=== PATIENT | male | born 1970 | race Caucasian/White ===

== ENCOUNTER 2019-10-15 15:59 | Inpatient (IN) | payer OTHER ==
[~2019-10-15] VITALS: Ht 180.3 cm; Wt 91.8 kg
[~2019-10-15 15:59] MED LIST: CEPH500 PO; CLIN300 PO; CRUTCH3 USE; HYDACE10B PO; HYDACE5 PO; HYDACE5325 PO; IBUP800 PO; LORA1 PO; LORA10ER PO; MECL25 PO; MOMENI; OXYACE5T PO; PRED20 PO; RXHYDACE PO; RXLORA1 PO; RXONDA4ODT MM
[2019-10-15 18:09] LABS: BASOPHILS ABSOLUTE AUTO 0.06 K/mm3 (0.00-0.23); BASOPHILS PERCENT AUTO 1 % (0-2); EOSINOPHILS ABSOLUTE AUTO 0.09 K/mm3 (0.00-0.68); EOSINOPHILS PERCENT AUTO 1 % (0-6); Hematocrit 43.1 % (37.0-53.0); Hemoglobin 14.4 g/dL (13.5-17.5); IMMATURE GRAN ABSOLUTE AUTO 0.04 K/mm3 (0.00-0.10); IMMATURE GRAN PERCENT AUTO 0 % (0-1); LYMPHOCYTES ABSOLUTE AUTO 1.75 K/mm3 (0.84-5.20); LYMPHOCYTES PERCENT AUTO 17 % (21-46); MONOCYTES ABSOLUTE AUTO 0.84 K/mm3 (0.16-1.47); MONOCYTES PERCENT AUTO 8 % (4-13); Mean Corpuscular HGB 28.5 pg (26.0-34.0); Mean Corpuscular HGB Conc 33.4 g/dL (31.5-36.5); Mean Corpuscular Volume 85 fL (80-100); Mean Platelet Volume 10.4 fL (9.1-12.4); NEUTROPHILS ABSOLUTE AUTO 7.55 K/mm3 (1.96-9.15); NEUTROPHILS PERCENT AUTO 73 % (41-73); Platelet Count 300 K/mm3 (150-400); RDW Coefficient Variation 12.4 % (11.7-14.2); RDW Standard Deviation 37.7 fL (35.1-46.3); Red Blood Cell Count 5.06 M/mm3 (4.30-5.90); White Blood Cell Count 10.33 K/mm3 (4.00-11.30)
[2019-10-15 18:29] LABS: Alanine Aminotransfer (ALT/SGP 37 U/L (12-78); Albumin, Blood 3.8 g/dL (3.4-5.0); Albumin/Globulin Ratio 0.7 (0.8-1.8); Alk Phos 101 U/L (50-136); Anion Gap 5 mmol/L (6-16); Aspartate Aminotrans (AST/SGOT 17 U/L (12-37); Bilirubin, Total 0.8 mg/dL (0.1-1.0); Blood Urea Nitrogen 8 mg/dL (8-24); CO2, Blood 29 mmol/L (21-32); Calcium, Blood 9.9 mg/dL (8.5-10.1); Chloride, Blood 98 mmol/L (98-108); Globulin, Blood 5.1 g/dL (2.2-4.0); Glomerular Filtration Rate >60 (60-); Glucose, Blood 96 mg/dL (70-99); Potassium, Blood 3.6 mmol/L (3.5-5.5); Sodium, Blood 132 mmol/L (136-145); Total Protein, Blood 8.9 g/dL (6.4-8.2)
[2019-10-15] MEDS ORDERED: TAMS.4ER PO (19:13)
[2019-10-15] MEDS ORDERED: DOXY100 PO (19:13)
[2019-10-15] MEDS ORDERED: Pyridium200 MG (19:14)
[2019-10-15] MEDS ORDERED: Norco 5-325 Ta1 EACH PO (19:14)
[2019-10-15 20:42] LABS: Source, Urine Clean Catch
[2019-10-15 20:44] LABS: Appearance, Urine Clear (Clear); Blood, Urine 1+ (Neg); Glucose Qualitative, Urine Neg (Neg); Ketones, Urine Neg (Neg); Leukocyte Esterase, Urine 3+ (Neg); Nitrite, Urine Pos (Neg); Protein, Urine 1+ (Neg); Specific Gravity, Urine 1.005 (1.003-1.022); Urobilinogen, Urine 2+ (Normal); pH, Urine 6.5 (5.0-8.0)
[2019-10-15 20:49] LABS: Bilirubin, Urine 2+ (Neg); Color, Urine Orange (P-Yellow)
[2019-10-15 20:50] LABS: Red Blood Cells, Urine 0-2 /hpf (0-2); Squamous Epithelial Cells Rare /hpf (Few); White Blood Cells, Urine 50-100 /hpf (0-5)
[2019-10-15 20:51] LABS: Bacteria Mod /hpf
[2019-10-15] MEDS ORDERED: HYDACE10B PO (23:03)
--- NOTE | 2019-10-16 02:55 | NUR ---
0255 BLADDER SCAN 379 ML
--- NOTE | 2019-10-16 04:22 | NUR ---
SUMMARY PT ARRIVED TO FLOOR IN DISCOMFORT. PT STATES THAT THE [place] HAS NOT PROVIDED RELIEF VERY WELL. PT REPORTS IV PAIN MED WORKS WELL BUT DOES NOT LAST. PT CONTINUES TO HAVE DISCOMFORT TRYING TO VOID. PT REPORTS THE PYRIDIUM HAS HELPED WELL. PT REPORTED HAVING A LARGE BM THIS SHIFT WELL. CALL LIGHT IN REACH
--- NOTE | 2019-10-16 17:06 | NUR ---
SHIFT SUMMARY- PT IS A/O, PLESANT AND COOPERATIVE. ENCOURAGING FLUID INTAKE. HE IS HAVING SOME PAIN WITH URINATION, AND DOES NOT FEEL LIKE HE IS VOIDING COMPLETELY. HE IS EATING AND DRINKING WELL. MADE SOME CHANGES TO HIS PAIN MEDICATION, WHICH HE REPORTS IS WORKING BETTER. HE ATTEMPTED TO REST FOR MUCH OF THIS AFTERNOON
--- NOTE | 2019-10-17 05:57 | NUR ---
SHIFT SUMMARY ASSUMED CARE OF PT AT 1900. PT IS A/OX4, DENIES N.T IN EXTREMITES. LUNG SOUNDS CLEAR, HEART SOUNDS REGULAR, PT DENIES SOB/CP AT THIS TIME. PT IS HAVING DIFFICULTY URINATING BUT HE STATES THAT IT HAS BEEN GETTING BETTER SINCE HE STARTED ABX. PT IS INDEPENDENT IN ROOM. PT C/O PAIN IN HIS LOWER ABD WHERE IS BLADDER IS, MEDICATED PER EMAR. NO ACUTE EVENTS DURING THE NIGHT. PT SLEPT T/O THE NIGHT. CALL LIGHT IN REACH, BED IN LOWEST POSTION, WILL CONTINUE TO MONITOR UNTIL DAYSHIFT NURSE ARRIVES.
--- NOTE | 2019-10-17 18:15 | NUR ---
SHIFT SUMMARY- PT IS A/O, PLESANT AND COOPERATIVE. HE IS HAVING AN EASIER TIME URINATING TODAY. HE RECIEVED BOWEL CARE AND HAD A BM THIS SHIFT. HE IS EATING AND DRINKING WELL. HE IS INDEPENDENT IN THE ROOM. HE TOOK A SHOWER THIS AFTERNOON.
--- NOTE | 2019-10-18 05:41 | NUR ---
SHIFT SUMMARY PT HAD DIFFICULT NIGHT. AT START OF SHIFT PT HAD A BOWEL MOVEMENT AFTER DRINKING PRUNE JUICE. PT FELT GOOD IMMEDIATELY AFTER BM, FELT IF HE WAS ABLE TO VOID WELL. AT APPROX 2330 PT BEGAN HAVING DIFFICULTY AGAIN GETTING HIS STREAM TO START AND EXPERIENCED BLADDER SPASMS. PT VERY UNCOMFORTABLE AT THIS TIME. MEDICATED W/ ROXICODONE AND NEW ORDER FOR FLEXERIL. PT APPEARED TO REST WELL FOLLOWING. PT REFUSED BLADDER SCAN BUT DID EVENTUALLY VOID A LARGE AMOUNT OF ORANGE URINE. PT HOPEFUL TO DISCHARGE TODAY HE HAS A TRIP WITH HIS SON SOON. VITAL SIGNS STABLE. WILL CONTINUE TO MONITOR.
--- NOTE | 2019-10-18 17:45 | NUR ---
PT AOX4 AND COOPERATIVE OF CARE. PT INDEPENDENT IN ROOM AND CALLS APPROPRIATELY. PT TREATED FOR ABDOMINAL PAIN PER EMAR. PT STATED AT THE START OF SHIFT HE WAS HAVING TROUBLE URINATING, BUT WAS ABLE TO VOID WITH SOME EFFORT. PT BECAME MUCH MORE ANXIOUS WHEN HE FOUND OUT FLEXRIL HAD BEEN DC'D. THIS AFTER SCHOOL CAREGIVER TALKED WITH DR NUNO AND LET PT KNOW WHY CHANGES HAD BEEN MADE AND DR NUNO STOPPED AND TALKED WITH PT WELL. PT STILL IS ANXIOUS AND KEEPS HAVING MORE AND MORE QUESTIONS TO ASK. WILL CONTINUE TO MONITOR.
[2019-10-18 19:08] LABS: Hematocrit 39.3 % (37.0-53.0); Hemoglobin 12.7 g/dL (13.5-17.5); Mean Corpuscular HGB 27.7 pg (26.0-34.0); Mean Corpuscular HGB Conc 32.3 g/dL (31.5-36.5); Mean Corpuscular Volume 86 fL (80-100); Mean Platelet Volume 10.1 fL (9.1-12.4); Platelet Count 273 K/mm3 (150-400); RDW Coefficient Variation 12.4 % (11.7-14.2); RDW Standard Deviation 38.8 fL (35.1-46.3); Red Blood Cell Count 4.59 M/mm3 (4.30-5.90); White Blood Cell Count 7.01 K/mm3 (4.00-11.30)
[2019-10-18 19:32] LABS: Anion Gap 5 mmol/L (6-16); Blood Urea Nitrogen 12 mg/dL (8-24); CO2, Blood 28 mmol/L (21-32); Calcium, Blood 9.2 mg/dL (8.5-10.1); Chloride, Blood 103 mmol/L (98-108); Creatinine, Blood 1.09 mg/dL (0.60-1.20); Glomerular Filtration Rate >60 (60-); Glucose, Blood 107 mg/dL (70-99); Potassium, Blood 4.1 mmol/L (3.5-5.5); Sodium, Blood 136 mmol/L (136-145)
--- NOTE | 2019-10-19 07:22 | NUR ---
SHIFT SUMMARY A/O, ABLE TO MAKE NEEDS KNOWN. COOPERATIVE WITH CARE. CALLS AND ANSWERS QUESTIONS APPROPRIATELY. C/O PAIN/DISCOMFORT TO FLANK/GROIN/BACK; MEDICATED PER EMAR. STATED THIS AM THAT UNABLE TO VOID X SEVERAL HOURS. OFFERED PO LIBRIUM WHICH WAS SUBSTITUTED YESTERDAY 11/17/19 ACCORDING TO PATIENT. STATES DOES NOT WORK "FLEXERIL WORKS". STATES SOMEONE NEEDS TO TALK TO SOMEONE, BECAUSE NO ONE IS LISTENING TO ME. TEARFUL AND AGITATED. BLADDER SCAN DONE YEILDING 530 ML. ONCMONIKA RN NOTIFIED OF SITUATION IN WHICH SHE HAS LEFT MESSAGE WITH ATTENDING PHYSICIAN. VSS/AFEBRILE. CONTINUED TO MONITOR OVERNIGHT. BED IN LOWEST POSITION. CALL LIGHT AND BELONGINGS WITHIN REACH. REPORT GIVEN TO LUIS SANTIAGO.
[2019-10-19] MEDS ORDERED: TAMS.4ER PO (15:41)
[2019-10-19] MEDS ORDERED: HIGH POTENCY P1 EAC1 PO (15:41)
[2019-10-19] MEDS ORDERED: CIPR500 PO (15:43)
[2019-10-19] MEDS ORDERED: SENN187 PO (15:47)
--- NOTE | 2019-10-19 17:07 | NUR ---
PT DISCHARGED AT 1704 WITH AID TO TRANSPORT VIA WHEELCHAIR. ALL PERSONAL BELONGINGS ARE WITH PT. PT DISCHARGED WITH HUYNH BAG IN PLACE PT IS TO FOLLOW UP WITH HIS PCP AND UROLOGIST PER DR OCAMPO. PT STARTED SHIFT TODAY VERY ANXIOUS AND IN PAIN DUE TO NOT BEING ABLE TO VOID. DR OCAMPO WAS NOTIFIED AND INSTUCTED HUYNH TO BE PLACED. PT TOLERATED HUYNH WELL AND IT HUYNH WORKED WELL. PT BECAME MUCH HAPPIER AND COMFORTABLE. PT HAS BEEN INSTRUCTED ON HOW TO ATTATCH A LEG BAG AND WAS SENT WITH ONE. APPOINTMENT HAS BEEN SCHEDULED WITH A UROLOGIST TO FOLLOW UP WITH. ALL MEDICATIONS FAXED TO PHARMACY. PT VERBALIZED UNDERSTANDING FOR NEED TO SEE PCP AND UROLOGIST. NO DISTRESS NOTED ON DISCHARGE. PT'S PAIN EARLIER IN THE DAY TREATED PER EMAR.
== END 2019-10-19 17:03 | disposition home or self-care (01) | DRG 728 ==
LOC: ER 15:59 → MEDS 21:56
PROVIDERS: Emergency Medicine; Internal Medicine; Physician Assistant; ADMIT Family Medicine
DX: N41.2 Abscess of prostate (principal); R65.10 Systemic inflammatory response syndrome (SIRS) of non-infectious origin without acute organ dysfunction; E87.1 Hypo-osmolality and hyponatremia; K59.00 Constipation, unspecified; B96.20 Unspecified Escherichia coli [E. coli] as the cause of diseases classified elsewhere; N32.0 Bladder-neck obstruction; R33.9 Retention of urine, unspecified; N41.9 Inflammatory disease of prostate, unspecified
CPT/HCPCS: 36415; 74177; 80048; 80053; 81001; 83690; 85025; 85027; 87086; 96365-59; 99285-25; A9270; A9270-GY; J0744; J3010; J7030; J7050; Q9967

== ENCOUNTER → 2021-09-07 | Outpatient (CLI) | payer OTHER ==
[~2021-09-07] MED LIST changes: +CIPR500 PO; +DOXY100 PO; +HIGH POTENCY P1 EAC1 PO; +Norco 5-325 Ta1 EACH PO; +Pyridium200 MG; +SENN187 PO; +TAMS.4ER PO
[2021-09-07 17:58] LABS: BASOPHILS ABSOLUTE AUTO 0.06 K/mm3 (0.00-0.23); BASOPHILS PERCENT AUTO 1 % (0-2); EOSINOPHILS ABSOLUTE AUTO 0.24 K/mm3 (0.00-0.68); EOSINOPHILS PERCENT AUTO 4 % (0-6); IMMATURE GRAN ABSOLUTE AUTO 0.01 K/mm3 (0.00-0.10); IMMATURE GRAN PERCENT AUTO 0 % (0-1); LYMPHOCYTES ABSOLUTE AUTO 1.69 K/mm3 (0.84-5.20); LYMPHOCYTES PERCENT AUTO 31 % (21-46); MONOCYTES ABSOLUTE AUTO 0.46 K/mm3 (0.16-1.47); MONOCYTES PERCENT AUTO 8 % (4-13); Mean Corpuscular HGB 28.3 pg (26.0-34.0); Mean Corpuscular HGB Conc 34.1 g/dL (31.5-36.5); Mean Corpuscular Volume 83 fL (80-100); Mean Platelet Volume 10.5 fL (9.1-12.4); NEUTROPHILS PERCENT AUTO 55 % (41-73); Platelet Count 224 K/mm3 (150-400); RDW Coefficient Variation 12.9 % (11.7-14.2); RDW Standard Deviation 38.6 fL (35.1-46.3); White Blood Cell Count 5.46 K/mm3 (4.00-11.30)
[2021-09-07 18:11] LABS: C-REACTIVE PROTEIN, EXT RANGE <0.290 mg/dL (0.000-0.300); Magnesium, Blood 2.5 mg/dL (1.6-2.4); Uric Acid, Blood 5.7 mg/dL (3.5-7.2)
[2021-09-07 18:13] LABS: Alanine Aminotransfer (ALT/SGP 38 U/L (12-78); Albumin, Blood 3.9 g/dL (3.4-5.0); Albumin/Globulin Ratio 1.2 (0.8-1.8); Alk Phos 56 U/L (50-136); Anion Gap 4 mmol/L (6-16); Aspartate Aminotrans (AST/SGOT 16 U/L (12-37); Bilirubin, Total 0.4 mg/dL (0.1-1.0); Blood Urea Nitrogen 12 mg/dL (8-24); Bun/Creatinine Ratio 12.8 (12.0-20.0); CHOL/HDL RATIO 5.5; CO2, Blood 28 mmol/L (21-32); Calcium, Blood 8.9 mg/dL (8.5-10.1); Chloride, Blood 106 mmol/L (98-108); Cholesterol 202 mg/dL (50-200); Creatinine, Blood 0.93 mg/dL (0.60-1.20); Globulin, Blood 3.3 g/dL (2.2-4.0); Glomerular Filtration Rate >60 (60-); Glucose, Blood 106 mg/dL (70-99); HDL Cholesterol 37 mg/dL (>39); LDL/HDL RATIO 3.4; Low Density Lipoprotein Chol 124 mg/dL (0-110); Potassium, Blood 3.5 mmol/L (3.5-5.5); Sodium, Blood 138 mmol/L (136-145); Total Protein, Blood 7.2 g/dL (6.4-8.2); Triglycerides 204 mg/dL (30-160); Very Low Density Lipoprot Chol 40 mg/dL (6-32)
== END ==
LOC: LAB SHORT 17:20
PROVIDERS: Nurse Practitioner Family
DX: R73.09 Other abnormal glucose (principal); M25.561 Pain in right knee
CPT/HCPCS: 80053; 80061; 83036; 83735; 84550; 85025; 85651; 86140